=== PATIENT | male | born 1975 | race Caucasian/White ===

== ENCOUNTER 2018-07-29 09:31 | Emergency (ER) | payer OTHER ==
[~2018-07-29] VITALS: Ht 188 cm; Wt 76.0 kg
[2018-07-29 09:36] VITALS: BP 156/93
[2018-07-29] MEDS ORDERED: ACET-3068 PO (10:20)
== END 2018-07-29 10:34 | disposition home or self-care (01) ==
LOC: ER 09:33
DX: S92.511A Displaced fracture of proximal phalanx of right lesser toe(s), initial encounter for closed fracture (principal); S90.121A Contusion of right lesser toe(s) without damage to nail, initial encounter; F17.200 Nicotine dependence, unspecified, uncomplicated; Z79.899 Other long term (current) drug therapy; W45.8XXA Other foreign body or object entering through skin, initial encounter; Y93.89 Activity, other specified; Y92.89 Other specified places as the place of occurrence of the external cause; Y99.8 Other external cause status
CPT/HCPCS: 73630; 99284; L3260

== ENCOUNTER 2021-03-21 10:26 | Emergency (ER) | payer MEDICAID, OTHER ==
[~2021-03-21] VITALS: Ht 188 cm; Wt 177.7 kg
[2021-03-21] MEDS ORDERED: ketorolac tromethamine 15mg/ml inj. IM ONE (12:25)
--- NOTE | 2021-03-21 12:44 | NUR ---
DR. JAUREGUI AT BEDSIDE,CALL LIGHT WITHIN REACH.MRI SCREENING FORM GIVEN FOR PATIENT TO FILL OUT.
--- NOTE | 2021-03-21 13:14 | NUR ---
pt to ct.
--- NOTE | 2021-03-21 13:47 | NUR ---
PATIENT ERIC INT HE ROOM FROM MRI.
--- NOTE | 2021-03-21 15:00 | NUR ---
Awaiting Tele Neuro consult,tele neuro monitor at bedside.
[2021-03-21 20:03] LABS: BASOPHILS # (AUTO) 0.1 X10'3 (0-0.2); BASOPHILS % (AUTO) 0.8 % (0-1); EOSINOPHILS # (AUTO) 0.2 X10'3 (0-0.9); EOSINOPHILS % (AUTO) 2.3 % (0-6); HEMATOCRIT 45.5 % (42.0-52.0); HEMOGLOBIN 15.6 g/dl (14.0-17.9); LYMPHOCYTES # (AUTO) 1.8 X10'3 (1.1-4.8); LYMPHOCYTES % (AUTO) 22.5 % (21-51); MEAN CORPUSCULAR HGB CONC 34.2 g/dL (33.0-36.5); MEAN CORPUSCULAR VOLUME 99.4 FL (78-98); MEAN PLATELET VOLUME 7.4 FL (7.4-10.4); MONOCYTES # (AUTO) 0.9 X10'3 (0-0.9); MONOCYTES % (AUTO) 11.5 % (2-12); NEUTROPHILS # (AUTO) 5.1 X10'3 (1.8-7.7); NEUTROPHILS % (AUTO) 62.9 % (42-75); PLATELET COUNT 266 X10'3 (140-440); RED BLOOD COUNT 4.58 X10'6 (4.70-6.10); RED CELL DISTRIBUTION WIDTH 12.5 % (11.5-14.5); WHITE BLOOD COUNT 8.2 X10'3 (4.5-11.0)
[2021-03-21 20:19] LABS: ANION GAP 8 (8-16); BILIRUBIN,TOTAL 0.7 MG/DL (0.1-1.0); BLOOD UREA NITROGEN 22 MG/DL (7-18); BUN/CREATININE RATIO 23.4 (5.4-32.0); CALCIUM 9.4 MG/DL (8.5-10.1); CHLORIDE 101 MMOL/L (99-107); CREATININE 0.94 MG/DL (0.60-1.10); GLUCOSE 124 MG/DL (70-104); POTASSIUM 3.8 MMOL/L (3.5-5.1); SODIUM 137 MMOL/L (135-145); TOTAL CARBON DIOXIDE 28.4 MMOL/L (24-32); TOTAL PROTEIN 7.6 G/DL (6.4-8.2); eGFR 87 ML/MIN
[2021-03-21 20:20] LABS: ALANINE AMINOTRANSFERASE 40 U/L (12-78); ALBUMIN/GLOBULIN RATIO 1.1 (1.1-1.5); ALKALINE PHOSPHATASE 93 IU/L (46-116); ASPARTATE AMINO TRANSFERASE 29 U/L (10-37)
--- NOTE | 2021-03-21 23:13 | NUR ---
GROUND TRANSPORT UNAVAILABLE THROUGH THE NIGHT. [facility] HAS CALLED INFORMING THEY ARE UNABLE TO HOLD THE BED ASSIGNMENT THROUGH THE NIGHT. THE PATIENT IS STILL ACCEPTED AT THEIR FACILITY BUT WILL HAVE TO CALL AGAIN IN THE MORNING TO GET ANOTHER BED ASSIGNMENT.
--- NOTE | 2021-03-22 06:47 | NUR ---
PATIENT SLEEPING ON LEFT SIDE, NO SIGNS OF DISTRESS NOTED.
--- NOTE | 2021-03-22 07:25 | NUR ---
DR JAUREGUI MADE AWARE PATIENT HAS RIDE TO [place]. PER PATIENT HIS SISTER WILL BE TAKING HIM. NO NON-EMERGENT AMBULANCE SERVICE AVAILABLE UNTIL TOMORROW. MD AND PATIENT AWARE AND AGREE BEST AND QUICKEST OPTION IS TO GO POV TO [place].
[2021-03-22 09:23] VITALS: BP 130/97
== END 2021-03-22 09:27 | disposition short-term general hospital (02) ==
LOC: ER 10:27
DX: S39.92XA Unspecified injury of lower back, initial encounter (principal); Z20.822 Contact with and (suspected) exposure to COVID-19; R20.0 Anesthesia of skin; M54.89 Other dorsalgia; G89.29 Other chronic pain; F17.200 Nicotine dependence, unspecified, uncomplicated; Z72.89 Other problems related to lifestyle; X58.XXXA Exposure to other specified factors, initial encounter; Y93.89 Activity, other specified; Y92.89 Other specified places as the place of occurrence of the external cause; Y99.8 Other external cause status
CPT/HCPCS: 36415; 72148; 80053; 85025; 87635; 96372; 99285; C9803; J1885

== ENCOUNTER 2021-04-09 14:05 | Emergency (ER) | payer MEDICAID, OTHER ==
[~2021-04-09] VITALS: Ht 188 cm; Wt 73.0 kg
[2021-04-09 14:51] VITALS: BP 146/103
[2021-04-09] MEDS ORDERED: CEPH250T PO (18:13)
== END 2021-04-09 18:30 | disposition home or self-care (01) ==
LOC: ER 14:05
DX: Z48.02 Encounter for removal of sutures (principal); G89.29 Other chronic pain; Z72.89 Other problems related to lifestyle; Z79.2 Long term (current) use of antibiotics
CPT/HCPCS: 99283

== ENCOUNTER 2022-10-09 12:52 | Emergency (ER) | payer MEDICAID, OTHER ==
[~2022-10-09] VITALS: Ht 188 cm; Wt 80.0 kg
[2022-10-09] MEDS ORDERED: ketorolac trometh. 30mg/ml inj. IM ONE (14:35)
[2022-10-09] MEDS ORDERED: sulfamethoxazole/trimethoprim DS (800/160mg) tablet PO ONE (14:35)
[2022-10-09 14:56] LABS: BASOPHILS # (AUTO) 0.1 X10'3 (0-0.2); BASOPHILS % (AUTO) 0.8 % (0-1); EOSINOPHILS # (AUTO) 0.1 X10'3 (0-0.9); EOSINOPHILS % (AUTO) 0.8 % (0-6); HEMATOCRIT 47.8 % (42.0-52.0); LYMPHOCYTES # (AUTO) 2.6 X10'3 (1.1-4.8); LYMPHOCYTES % (AUTO) 21.1 % (21-51); MEAN CORPUSCULAR HEMOGLOBIN 33.5 PG (27.0-31.0); MEAN CORPUSCULAR HGB CONC 33.4 g/dL (33.0-36.5); MEAN CORPUSCULAR VOLUME 100.2 FL (78-98); MEAN PLATELET VOLUME 7.3 FL (7.4-10.4); MONOCYTES # (AUTO) 0.9 X10'3 (0-0.9); NEUTROPHILS # (AUTO) 8.6 X10'3 (1.8-7.7); NEUTROPHILS % (AUTO) 70.3 % (42-75); PLATELET COUNT 258 X10'3 (140-440); RED BLOOD COUNT 4.77 X10'6 (4.70-6.10); WHITE BLOOD COUNT 12.3 X10'3 (4.5-11.0)
--- NOTE | 2022-10-09 15:00 | NUR ---
Pt reports feeling dizzy after blood draw. BP 106/73. Pt laid down in [facility] and provided with water.
[2022-10-09] MEDS ORDERED: SULF1TAB49 PO (15:04)
[2022-10-09] MEDS ORDERED: acetaminophen 325mg tablet PO ONE (15:10)
--- NOTE | 2022-10-09 15:18 | NUR ---
Pt states that his dizziness has improved. BP 125/90
[2022-10-09 15:19] VITALS: BP 125/90
== END 2022-10-09 15:49 | disposition home or self-care (01) ==
LOC: ER 12:53
DX: L03.114 Cellulitis of left upper limb (principal); M79.602 Pain in left arm; G89.29 Other chronic pain; Z86.14 Personal history of Methicillin resistant Staphylococcus aureus infection; Z72.89 Other problems related to lifestyle; Z79.2 Long term (current) use of antibiotics
CPT/HCPCS: 36415; 85025; 86140; 93005; 96372; 99284; J1885